=== PATIENT | male | born 1970 | race Caucasian/White ===

== ENCOUNTER → 2017-10-19 | Day surgery (SDC) | payer OTHER ==
[~2017-10-19] VITALS: Ht 175.3 cm; Wt 99.4 kg
[~2017-10-19] MED LIST: ACETAMINOPHEN 1000 MG/100 ML 100 ML IV ONE; BACITRACIN TOP OINT 15 GM TUBE ONE; BUPIVACAINE HCL PF 0.5% 30 ML VIAL ONE; CHLORHEXIDINE GLUCONATE 2 % 1 PACK (2 CLOTHS) TOPICAL PRN; DO NOT ADM ANY ANTICOAGULANT DRUGS PRN; LACTATED RINGER'S 1000 ML INJ 500 ML IV SCH; LACTATED RINGER'S 1000 ML IV PRN; LIDOCAINE HCL 1% 50 ML VIAL ONE; LIDOCAINE HCL 1% PF 5 ML SYRINGE OTHER ONE; LISI20TA PO; METOPROLOL TARTRATE 25 MG TAB PO PRN; NEOMYCIN/POLYMYXIN 1 ML G.U. IRRIGANT ONE; PHENYLEPH/NS 1000 MCG/10 ML SYR IV ONE; POVIDONE IODINE 5% (ANTISEPSIS KIT) 4 APPLICATIONS EACH NARE PRN; PROPOFOL 200 MG/20 ML AMP IV ONE; SERT-129 PO; SODIUM CHLORID 0.9% 500 ML IV PRN; SODIUM CHLORIDE 0.9% 10 ML VIAL IV FLUSH ONE; STERILE WATER FOR INJECTION 20 ML VIAL IV ONE; VECURONIUM BROMIDE 20 MG VIAL IV ONE; ceFAZolin INJ 1,000 MG VIAL IV ONE; ePHEDrine/NS 25 MG/5 ML SYRINGE IV ONE
[2017-10-19] MEDS: ceFAZolin 2 GM/DEX PREMIX 50 ML IV SCH ×2 (14:20→14:40)
--- NOTE | 2017-10-19 15:26 | PD.OP ---
Operative Report Preoperative Diagnosis: (1) Squamous cell carcinoma of skin of right middle finger Postoperative Diagnosis: (1) Squamous cell carcinoma of skin of right middle finger Procedure: wide excision squamous cell carcinoma right middle finger Anesthesia: LMA Surgeon: Ollie Sweet Granulator(s): deanne Operation and Findings: squamous cell carcinoma right middle finger dorsum Ollie Sweet MD Oct 19, 2017 15:26
--- NOTE | 2017-10-19 15:53 | MP ---
cc: Ollie Sweet MD DATE OF OPERATION: 10/19/2017 DATE OF PROCEDURE: 10/19/2017 PREOPERATIVE DIAGNOSIS: Invasive squamous cell carcinoma, right middle finger, dorsum. POSTOPERATIVE DIAGNOSIS: Invasive squamous cell carcinoma, right middle finger, dorsum. PROCEDURE PERFORMED: Wide excision squamous cell carcinoma, right middle finger. SURGEON:Wilton Sweet MD ANESTHESIA: LMA. ESTIMATED BLOOD LOSS: Minimal. TOURNIQUET TIME: 17 minutes at 250 mmHg. COMPLICATIONS. None. SPECIMENS: Sent to pathology. Frozen section margins were clear. DISPOSITION: To PACU stable. INDICATIONS: The patient is a 47-year-old male who presented with complaints of chronic skin lesion over the dorsal aspect of the right middle finger. He underwent incision, biopsy of the skin lesion. Pathology was invasive squamous cell carcinoma. The patient was consented for wide excision, possible full thickness skin grafting, right middle finger dorsum. The patient was explained the risks and benefits of the procedure. PROCEDURE IN DETAIL: The patient was brought to the operating room under LMA. The right upper extremity was sterilely prepped and draped. Incision site was marked in an elliptical fashion around skin lesion over the dorsal aspect of the middle finger proximal phalanx region. The lesion measured about 3-4 mm and another 3-4 mm margin was given around the lesion to obtain clearance. After limb elevation, the tourniquet was inflated to 250 mmHg. An incision was then made over the proposed incision site. Sharp dissection was carried out. The skin along with the lesion with surrounding normal skin was excised and sent for pathology. The lesion was elevated with part of subcutaneous tissue. Bleeding points were cauterized with bipolar cautery. The specimen was marked as a short double strand as distal and a single long strand as radial. A thorough wash was given. The tourniquet was deflated at 17 minutes. He had good distal circulation after release of the tourniquet. Bleeding points were cauterized with bipolar cautery. Intraoperative frozen section findings was clear margins with some atypical cells. As the margins were clear, the defect was approximated initially with 5-0 Vicryl. I was able to obtain approximation of the skin edges and decision was made to proceed with primary closure. Multiple 5-0 Vicryl stitches were applied in an intradermal fashion. This was then followed by 5-0 nylon in horizontal mattress in interrupted fashion. I was able to obtain closure of the defect. Xeroform, bacitracin dressing applied. About 4 mL of local anesthetic solution containing 0.5% Marcaine was injected as a digital block. Bulky finger dressing was applied which was held in place by Sof-Rol and an Rogers wrap. The patient was recovered and taken to the recovery room in condition. He had good distal circulation at the end of the procedure. PLAN: The plan will be to follow up in 2 days' time for a dressing change. Ollie Sweet MD SE/CONCEPCION , 03:30 PM , 03:52 PM
[2017-10-19 16:10] VITALS: BP 102/66; PULSE 66; RESP 16; TEMP 98.4; O2SAT 99
== END | disposition home or self-care (01) ==
LOC: HSDC 13:01
PROVIDERS: ATTEND Surgery Surgery of the Hand
DX: C44.622 Squamous cell carcinoma of skin of right upper limb, including shoulder (principal); I10 Essential (primary) hypertension
CPT/HCPCS: 00400; 11620; 88305; 88331; J0131; J0690; J2370; J3010